=== PATIENT | male | born 1980 | race Caucasian/White ===

== ENCOUNTER 2021-01-23 09:52 | Emergency (ER) | payer OTHER ==
[~2021-01-23] VITALS: Ht 180.3 cm; Wt 95.2 kg
[2021-01-23 10:18] LABS: BASOPHILS ABSOLUTE AUTO 0.15 K/mm3 (0.00-0.23); BASOPHILS PERCENT AUTO 1 % (0-2); EOSINOPHILS ABSOLUTE AUTO 0.26 K/mm3 (0.00-0.68); EOSINOPHILS PERCENT AUTO 2 % (0-6); Hematocrit 45.4 % (37.0-53.0); Hemoglobin 14.2 g/dL (13.5-17.5); IMMATURE GRAN ABSOLUTE AUTO 0.12 K/mm3 (0.00-0.10); IMMATURE GRAN PERCENT AUTO 1 % (0-1); LYMPHOCYTES ABSOLUTE AUTO 3.68 K/mm3 (0.84-5.20); LYMPHOCYTES PERCENT AUTO 22 % (21-46); MONOCYTES ABSOLUTE AUTO 1.19 K/mm3 (0.16-1.47); MONOCYTES PERCENT AUTO 7 % (4-13); Mean Corpuscular HGB 28.5 pg (26.0-34.0); Mean Corpuscular HGB Conc 31.3 g/dL (31.5-36.5); Mean Corpuscular Volume 91 fL (80-100); Mean Platelet Volume 10.7 fL (9.1-12.4); NEUTROPHILS ABSOLUTE AUTO 11.24 K/mm3 (1.96-9.15); NEUTROPHILS PERCENT AUTO 68 % (41-73); Platelet Count 314 K/mm3 (150-400); RDW Coefficient Variation 13.2 % (11.7-14.2); RDW Standard Deviation 44.7 fL (35.1-46.3); Red Blood Cell Count 4.99 M/mm3 (4.30-5.90); White Blood Cell Count 16.64 K/mm3 (4.00-11.30)
[2021-01-23 10:32] LABS: Alanine Aminotransfer (ALT/SGP 25 U/L (12-78); Albumin, Blood 3.9 g/dL (3.4-5.0); Albumin/Globulin Ratio 0.8 (0.8-1.8); Alk Phos 108 U/L (50-136); Anion Gap 16 mmol/L (6-16); Aspartate Aminotrans (AST/SGOT 14 U/L (12-37); Bilirubin, Total 0.3 mg/dL (0.1-1.0); Blood Urea Nitrogen 13 mg/dL (8-24); Bun/Creatinine Ratio 12.9 (12.0-20.0); CO2, Blood 16 mmol/L (21-32); Calcium, Blood 8.9 mg/dL (8.5-10.1); Chloride, Blood 103 mmol/L (98-108); Creatinine, Blood 1.01 mg/dL (0.60-1.20); Globulin, Blood 4.6 g/dL (2.2-4.0); Glomerular Filtration Rate >60 (60-); Glucose, Blood 227 mg/dL (70-99); Potassium, Blood 4.2 mmol/L (3.5-5.5); Sodium, Blood 135 mmol/L (136-145); Total Protein, Blood 8.5 g/dL (6.4-8.2)
[2021-01-23] MEDS ORDERED: ACET325 PO (12:37)
[2021-01-23] MEDS ORDERED: Acerola C500 MG PO (12:37)
[2021-01-23] MEDS ORDERED: Seroquel Xr50 MG PO (12:38)
[2021-01-23] MEDS ORDERED: FERSU300 PO (12:38)
[2021-01-23] MEDS ORDERED: LEVE500 PO (13:55)
== END 2021-01-23 15:11 | disposition home or self-care (01) ==
LOC: ER 09:52
PROVIDERS: Emergency Medicine
DX: R56.9 Unspecified convulsions (principal); Z87.820 Personal history of traumatic brain injury; Z98.890 Other specified postprocedural states
CPT/HCPCS: 70450; 71045; 72125; 80053; 82947; 85025; 96374; 99285-25; J1953; J7030

== ENCOUNTER 2024-07-21 10:08 | Inpatient (IN) | payer OTHER, MEDICARE ==
[~2024-07-21] VITALS: Ht 190.5 cm; Wt 145.4 kg
[2024-07-21] VITALS (10 sets, daily range): BP systolic 97–140; BP diastolic 56–86
[~2024-07-21 10:08] MED LIST: ACET325 PO; Acerola C500 MG PO; FERSU300 PO; LEVE500 PO; Seroquel Xr50 MG PO
[2024-07-21 11:12] LABS: BASOPHILS PERCENT AUTO 1 % (0-2); EOSINOPHILS ABSOLUTE AUTO 0.15 K/mm3 (0.00-0.68); EOSINOPHILS PERCENT AUTO 1 % (0-6); Hematocrit 42.7 % (37.0-53.0); Hemoglobin 14.3 g/dL (13.5-17.5); IMMATURE GRAN ABSOLUTE AUTO 0.07 K/mm3 (0.00-0.10); IMMATURE GRAN PERCENT AUTO 1 % (0-1); LYMPHOCYTES ABSOLUTE AUTO 2.24 K/mm3 (0.84-5.20); LYMPHOCYTES PERCENT AUTO 20 % (21-46); MONOCYTES ABSOLUTE AUTO 0.73 K/mm3 (0.16-1.47); MONOCYTES PERCENT AUTO 6 % (4-13); Mean Corpuscular HGB Conc 33.5 g/dL (31.5-36.5); Mean Corpuscular Volume 87 fL (80-100); Mean Platelet Volume 10.6 fL (9.1-12.4); NEUTROPHILS ABSOLUTE AUTO 8.22 K/mm3 (1.96-9.15); NEUTROPHILS PERCENT AUTO 71 % (41-73); Platelet Count 243 K/mm3 (150-400); RDW Coefficient Variation 13.4 % (11.7-14.2); RDW Standard Deviation 42.5 fL (35.1-46.3); Red Blood Cell Count 4.93 M/mm3 (4.30-5.90); White Blood Cell Count 11.51 K/mm3 (4.00-11.30)
[2024-07-21 12:00] LABS: Albumin, Blood 3.5 g/dL (3.4-5.0); Albumin/Globulin Ratio 0.9 (0.8-1.8); Bilirubin, Total 0.3 mg/dL (0.1-1.0); Bun/Creatinine Ratio 10.1 (12.0-20.0); Calcium, Blood 9.6 mg/dL (8.5-10.1); Creatinine, Blood 0.79 mg/dL (0.60-1.20); Globulin, Blood 4.1 g/dL (2.2-4.0); Potassium, Blood 3.8 mmol/L (3.5-5.5); Total Protein, Blood 7.6 g/dL (6.4-8.2)
[2024-07-21] MEDS ORDERED: LORazepam 2 MG/ML 1ML Injection ONE ×2 (12:26→12:31)
[2024-07-21] MEDS ORDERED: propofoL 100 ML IV ONE ×2 (12:44→14:12)
[2024-07-21] MEDS ORDERED: levETIRAcetam 1,500 MG in NS 100 ML IV ONE (12:45)
[2024-07-21] MEDS ORDERED: propofoL 20 ML IV SCH (12:45)
[2024-07-21] MEDS ORDERED: NS 1,000 ML IV ONE (12:58)
[2024-07-21] MEDS ORDERED: Midazolam HCL 1 MG/ML 5MLVIAL ONE (12:58)
[2024-07-21] MEDS ORDERED: levETIRAcetam 1,000 MG in NS 100 ML IV ONE (13:20)
[2024-07-21] MEDS ORDERED: FentaNYL Citrate 50 MCG/ML 2 ML Injection IV ONE ×2 (13:20→13:40)
[2024-07-21] MEDS ORDERED: FentaNYL Citrate 50 MCG/ML 2 ML Injection ONE (13:37)
[2024-07-21] MEDS ORDERED: NS 1,000 ML IV SCH (13:40)
[2024-07-21] MEDS ORDERED: fentaNYL citrate 1,000 MCG in NS 80 ML IV SCH (13:40)
[2024-07-21 13:56] LABS: U Amphetamine Screen Not Detected; U Barbituate Screen Not Detected; U Benzodiazapine Screen Not Detected; U Buprenorphine Screen Not Detected; U Cannabinoids Screen DETECTED; U Cocaine Screen Not Detected; U Methadone Screen Not Detected; U Methamphetamine Screen Not Detected; U Opiates Screen Not Detected; U Oxycodone Screen Not Detected; U Phencyclidine Screen Not Detected
[2024-07-21] MEDS ORDERED: propofoL 100 ML IV SCH (14:15)
[2024-07-21] MEDS ORDERED: Midazolam HCL 50 MG in NS 40 ML IV SCH (18:30)
[2024-07-21] MEDS ORDERED: Lactated Ringer's 1,000 ML IV SCH (18:55)
[2024-07-21 19:03] LABS: Base Excess Venous -0.4 mmol/L; Bicarbonate Venous 24.2 mmol/L (24.0-30.0)
[2024-07-21 19:54] LABS: Source, Urine Foley catheter
[2024-07-21 20:16] LABS: Appearance, Urine Turbid (Clear); Bilirubin, Urine Neg (Neg); Blood, Urine 4+ (Neg); Color, Urine Yellow (P-Yellow); Glucose Qualitative, Urine Neg (Neg); Ketones, Urine Neg (Neg); Leukocyte Esterase, Urine Neg (Neg); Nitrite, Urine Neg (Neg); Protein, Urine 1+ (Neg); Urobilinogen, Urine NORM (Normal)
[2024-07-21 20:28] LABS: Amorphous Heavy (0-Heavy); Bacteria Mod /hpf; Squamous Epithelial Cells Rare /hpf (Few); White Blood Cells, Urine 0-2 /hpf (0-5)
--- NOTE | 2024-07-21 21:38 | NUR ---
ADMISSION 2036 RECEIVED PT FROM ED VIA STRETCHER , INTUBATED, 7.5 ETT AT 26 AT TEETH, ON VENTILATOR AC/VC FIO2 40% RATE 16 TV 480 PEEP 5, COLIN LUNG SOUNDS COARSE, COARSE/DIM TO COLIN LOWER LOBES, ORAL SECRETIONS THIN CLEAR, MODERATED AMOUNT SUCTIONED PRIOR TO TURNING, OG PATENT AND SECURED TO ETT WITH TAPE, PLACEMENT VERIFIED BY AUSC, CONNECTED TO LOW INTERMITTENT SUCTION WITH NOTED CLEAR YELLOW BILE RETURNED, MCQUEEN PATENT AND DRAINING COUDY,SEDIMENT YELLOW URINE TO GRAVITY, BLE +2 EDEMA NOTED, +RADIAL AND PEDAL PULSES, PIV TO RIGHT HAND REMOVED DURING TRANSFER FROM STRETCHER TO BED, PIV TO RIGHT HAND PATENT WITH VERSED INFUSING AT 5 MG/HR AND PIV TO LEFT AC PATENT WITH PROPOPOL INFUSING AT 40 MCG/KG/MIN, VERSED INCREASED TO 7 MG/HR DUE TO PT BECOMING RESTLESS, PULLING ON RESTRAINTS AND MOVING LLE UP AND DOWN AND SHAKING HEAD BACK AND FORTH, DOES NOT FOLLOW COMMANDS OR RESPOND TO VERBAL STIMULI, NEW PIV 20G PLACED TO RIGHT AC, LEFT AC PIV REMOVED DUE TO UNABLE TO FLUSH, SEIZURE PADS PLACED TO BED, COLIN WRIST RESTRAINTS ON, PROPOFOL INCREASED TO 45 MCG/KG/MIN TO MAINTAIN RASS -2/-3 PER EMAR, FEBRILE 99.4F, MAP >65, SR -ST 90-100s, SPO2 >90%
[2024-07-21] MEDS ORDERED: levETIRAcetam 1,500 MG in NS 100 ML IV SCH (23:00)
[2024-07-22] VITALS (79 sets, daily range): BP systolic 89–142; BP diastolic 35–88
[2024-07-22 04:45] LABS: Base Excess Venous 1.2 mmol/L; Bicarbonate Venous 25.3 mmol/L (24.0-30.0); PCO2 Venous 40.3 mmHg (38-42); pH Blood Venous 7.41 (7.34-7.37)
[2024-07-22 04:55] LABS: BASOPHILS ABSOLUTE AUTO 0.07 K/mm3 (0.00-0.23); BASOPHILS PERCENT AUTO 1 % (0-2); EOSINOPHILS ABSOLUTE AUTO 0.06 K/mm3 (0.00-0.68); EOSINOPHILS PERCENT AUTO 1 % (0-6); Hematocrit 37.7 % (37.0-53.0); Hemoglobin 12.7 g/dL (13.5-17.5); IMMATURE GRAN ABSOLUTE AUTO 0.06 K/mm3 (0.00-0.10); IMMATURE GRAN PERCENT AUTO 1 % (0-1); LYMPHOCYTES ABSOLUTE AUTO 2.07 K/mm3 (0.84-5.20); LYMPHOCYTES PERCENT AUTO 16 % (21-46); MONOCYTES ABSOLUTE AUTO 0.91 K/mm3 (0.16-1.47); MONOCYTES PERCENT AUTO 7 % (4-13); Mean Corpuscular HGB 29.4 pg (26.0-34.0); Mean Corpuscular HGB Conc 33.7 g/dL (31.5-36.5); Mean Corpuscular Volume 87 fL (80-100); Mean Platelet Volume 10.8 fL (9.1-12.4); NEUTROPHILS ABSOLUTE AUTO 9.63 K/mm3 (1.96-9.15); NEUTROPHILS PERCENT AUTO 75 % (41-73); Platelet Count 233 K/mm3 (150-400); RDW Coefficient Variation 13.7 % (11.7-14.2); RDW Standard Deviation 44.1 fL (35.1-46.3); Red Blood Cell Count 4.32 M/mm3 (4.30-5.90)
[2024-07-22 05:34] LABS: Albumin, Blood 3.1 g/dL (3.4-5.0); Albumin/Globulin Ratio 0.9 (0.8-1.8); Bilirubin, Total 0.3 mg/dL (0.1-1.0); Bun/Creatinine Ratio 8.8 (12.0-20.0); Calcium, Blood 8.7 mg/dL (8.5-10.1); Creatinine, Blood 0.91 mg/dL (0.60-1.20); Globulin, Blood 3.4 g/dL (2.2-4.0); Potassium, Blood 3.4 mmol/L (3.5-5.5); Total Protein, Blood 6.5 g/dL (6.4-8.2)
[2024-07-22] MEDS ORDERED: Potassium Chl 20MEQ/Water100ML 100 ML IV SCH (05:55)
--- NOTE | 2024-07-22 06:40 | NUR ---
SHIFT SUMMARY VSS, AFEBRILE AT THIS TIME, TMAX 99.4F, REMAINS INTUBATED AND SEDATED RASS -3, CPOT 0, SR 80-90s, MAP>65, ON VENT FIO2 40%, SPO2 >90%,VERSED AND PROPOFOL TITRATED PER EMAR, LR INFUSING AT 150 ML/HR, POTASSIUM 3.4 WITH AM LABS, AWARE WITH NEW ORDERS RECEIVED, COLIN WRIST RESTRAINTS ON
[2024-07-22] MEDS ORDERED: Enoxaparin 40 MG/0.4 ML SYR SC SCH (09:00)
[2024-07-22] MEDS ORDERED: Ampicillin Sod/Sulbactam Sod 3 GM in NS 100 ML IV SCH (10:30)
[2024-07-22] MEDS ORDERED: DOCU100 PO (10:38)
[2024-07-22] MEDS ORDERED: Nicorette4 MG BC (10:39)
[2024-07-22] MEDS ORDERED: ALMACONE SUSPE355 ML PO (10:39)
[2024-07-22] MEDS ORDERED: INVEGA TRI IM (10:40)
[2024-07-22] MEDS ORDERED: SENN187 PO (10:41)
[2024-07-22] MEDS ORDERED: Hydrogen Peroxide 1.5 % Solution MT SCH (12:00)
[2024-07-22] MEDS ORDERED: Pantoprazole Sodium 40 MG Injection IV SCH (12:00)
--- NOTE | 2024-07-22 13:49 | NUR ---
VERSED STOPPED AT 1345. RASS -4 +GAG REFLEX, COUGH BUT NO SWALLOW, CORNEAL REFLEX PRESENT. PROPOFOL RUNNING AT 30 AT THIS TIME. PLAN TO SLOWLY WEAN PER DR GONZALEZ. EEG COMPLETED THIS MORNING, SEDATION PAUSED FOR DIAGNOSTIC PROCEDURE PATIENT BECAME AWAKE/ALERT AND RESPONSIVE, +COMBATATIVE PULLING AT RESTRAINTS. PROPOFOL WAS INCREASED AND VERSED INCREASED PATIENT BECAME CALM AND SEDATED.
[2024-07-22] MEDS ORDERED: dexmedeTOMIDine 100 ML IV SCH (15:35)
--- NOTE | 2024-07-22 16:31 | NUR ---
SEDATION VACATION UNSUCCESSFUL, PATIENT TITRATED OFF OF PROPOFOL AND STOPPED PER MD FOR SEDATION VACATION. DR GONZALEZ INCREASED TIDAL VOLUME AND PLACED HIM ON SPONTANEOUS BREATHING TRIAL. PATIENT TOLERATED SPONTANEOUS VENT MODE WELL BUT UPON AWAKENING FROM SEDATION PATIENT BECAME COMBATATIVE, TUGGING AT LINES/TUBE. NOT REDIRECTABLE AND DID NOT FOLLOW DIRECTIONS. PT WAS RE-SEDATED AND UPDATED ORDERS RECIEVED FROM DR GONZALEZ.
[2024-07-22] MEDS ORDERED: Propofol 10mg/ml 20 ml Vial (Procedural) IV ONE (16:36)
[2024-07-22] MEDS ORDERED: LORazepam 2 MG/ML 1ML Injection IV ONE (16:36)
[2024-07-22] MEDS ORDERED: SuccINYLCHOLINE Chloride 200 MG/10 ML 10MLSYR IV ONE (16:36)
[2024-07-22] MEDS ORDERED: Midazolam HCl 1MG / ML 2ML Vial XX ONE (16:36)
--- NOTE | 2024-07-22 18:40 | NUR ---
SHIFT SUMMARY PATIENT INTUBATED AND SEDATED. RASS -3 ABLE TO BRIEFLY FOLLOW COMMANDS IE SQUEEZING WITH L HAND BUT NOT CURRENTLY OPENING HIS EYES. GAG REFLEX INTACT, +COUGH, NO SWALLOW, CORNEAL REFLEX INTACT. VSS, VENT 16/520/45/5. O2 SAT STABLE AT 98% ON THIS SETTING. SINUS RHYTHM HR 60S, SBP 90-100S MAP MAINTAINING GREATER THAN 65. THIN CLEAR SECREATIONS. LUNGS BIBASILAR CRACKLES IN BASES A BIT COARSE ON THE RIGHT LOWER WELL. ABDOMEN IS SOFT/NON TENDER WITH HYPOACTIVE BOWEL TONES. OG TUBE TO LIS, APPROX 500ML OUT THIS SHIFT BILIOUS UOP ADEQUATE. MCQUEEN CATH IN PLACE DRAINING TO GRAVITY BLE DEPENDENT EDEMA WORSE ON R THAN L +1 NON PITTING MOTHER GIVEN UPDATES TODAY SEDATION VACATION NOT SUCESSFUL SEE PRIOR NOTE.
[2024-07-22 19:14] LABS: Acinetobacter baumannii DNA Not Detected copy/mL (NOT DETECT); Adenovirus DNA Not Detected (NOT DETECT); Chlamydia pneumonia Not Detected (NOT DETECT); Enterobacter cloacae DNA Not Detected copy/mL (NOT DETECT); Escherichia coli DNA Not Detected copy/mL (NOT DETECT); Haemophilus influenzae DNA Not Detected copy/mL (NOT DETECT); Klebsiella aerogenes DNA Not Detected copy/mL (NOT DETECT); Klebsiella oxytoca DNA Not Detected copy/mL (NOT DETECT); Klebsiella pneumoniae DNA Not Detected copy/mL (NOT DETECT); Legionella pneumophila Not Detected (NOT DETECT); Moraxella catarrhalis DNA Not Detected copy/mL (NOT DETECT); Mycoplasma pneumoniae Not Detected (NOT DETECT); Proteus sp DNA Not Detected copy/mL (NOT DETECT); Pseudomonas aeruginosa DNA Not Detected copy/mL (NOT DETECT); Serratia marcescens DNA Not Detected copy/mL (NOT DETECT); Staphylococcus aureus DNA Not Detected copy/mL (NOT DETECT); Streptococcus agalactiae DNA Not Detected copy/mL (NOT DETECT); Streptococcus pneumoniae DNA Not Detected copy/mL (NOT DETECT); Streptococcus pyogenes DNA Not Detected copy/mL (NOT DETECT)
[2024-07-22 19:15] LABS: Human Coronavirus RNA Not Detected (NOT DETECT); Human Metapneumovirus RNA Not Detected (NOT DETECT); Influenza virus A RNA Not Detected (NOT DETECT); Influenza virus B RNA Not Detected (NOT DETECT); Parainfluenza virus RNA Not Detected (NOT DETECT); Respiratory syncytial Vir RNA Not Detected (NOT DETECT); Rhinovirus+Enterovirus RNA Not Detected (NOT DETECT)
[2024-07-22] MEDS ORDERED: Cetylpyridinium Chloride 1 EA MISC MT SCH (20:00)
[2024-07-23] VITALS (34 sets, daily range): BP systolic 113–161; BP diastolic 71–97
[2024-07-23 03:58] LABS: BASOPHILS ABSOLUTE AUTO 0.06 K/mm3 (0.00-0.23); BASOPHILS PERCENT AUTO 1 % (0-2); EOSINOPHILS ABSOLUTE AUTO 0.14 K/mm3 (0.00-0.68); EOSINOPHILS PERCENT AUTO 1 % (0-6); Hematocrit 37.5 % (37.0-53.0); Hemoglobin 12.5 g/dL (13.5-17.5); IMMATURE GRAN ABSOLUTE AUTO 0.03 K/mm3 (0.00-0.10); IMMATURE GRAN PERCENT AUTO 0 % (0-1); LYMPHOCYTES ABSOLUTE AUTO 2.62 K/mm3 (0.84-5.20); LYMPHOCYTES PERCENT AUTO 22 % (21-46); MONOCYTES ABSOLUTE AUTO 1.12 K/mm3 (0.16-1.47); MONOCYTES PERCENT AUTO 9 % (4-13); Mean Corpuscular HGB 29.4 pg (26.0-34.0); Mean Corpuscular HGB Conc 33.3 g/dL (31.5-36.5); Mean Corpuscular Volume 88 fL (80-100); NEUTROPHILS PERCENT AUTO 67 % (41-73); Platelet Count 217 K/mm3 (150-400); RDW Coefficient Variation 13.9 % (11.7-14.2); RDW Standard Deviation 45.1 fL (35.1-46.3); Red Blood Cell Count 4.25 M/mm3 (4.30-5.90); White Blood Cell Count 11.97 K/mm3 (4.00-11.30)
[2024-07-23 04:16] LABS: Albumin, Blood 2.8 g/dL (3.4-5.0); Albumin/Globulin Ratio 0.8 (0.8-1.8); Bilirubin, Total 0.4 mg/dL (0.1-1.0); Bun/Creatinine Ratio 6.5 (12.0-20.0); Calcium, Blood 8.3 mg/dL (8.5-10.1); Creatinine, Blood 0.92 mg/dL (0.60-1.20); Globulin, Blood 3.4 g/dL (2.2-4.0); Magnesium, Blood 2.1 mg/dL (1.6-2.4); Potassium, Blood 3.6 mmol/L (3.5-5.5); Total Protein, Blood 6.2 g/dL (6.4-8.2)
[2024-07-23] MEDS ORDERED: Potassium Chloride 40 MEQ in NS 250 ML IV SCH (06:05)
--- NOTE | 2024-07-23 06:16 | NUR ---
SHIFT SUMMARY PT REMAINS INTUBATED AND SEDATED, RASS -2/-3, CPOT 0, AC/VC MODE ON VENT 40%/520/5/16, SB-SR 47-60s, BP MAP >65, TMAX 100.1F, TOLERATING VENT WELL, SEDATED ON PROPOFOL AND PRECEDEX, PRECEDEX TITRATED DOWN TO OFF DUE TO BRADYCARDIA, PROPOFOL TITRATED PER EMAR FOR RASS -2/-3, MCQUEEN PATENT AND DRAINING TO GRAVITY, TURNED AND REPOSITONED EVERY 2 HOUR, COLIN WRIST RESTRAINTS IN PLACE, SEIZURE PAD IN PLACE TO ALL SIDE RAILS
[2024-07-23] MEDS ORDERED: Furosemide 10 MG / ML 2ML Vial IV STA (08:32)
[2024-07-23] MEDS ORDERED: Furosemide 10 MG / ML 2ML Vial IV ONE (08:35)
--- NOTE | 2024-07-23 17:05 | NUR ---
Pt extubated at 1415 with good effect. See RT charting for details.
[2024-07-23] MEDS ORDERED: NS 250 ML IV PRN (18:15)
--- NOTE | 2024-07-23 18:57 | NUR ---
Summary. Pt much improved this shift. Off sedation, extubated. On RA, alert and oriented x2, occasionally exhibits auditory hallucinations and some mild confusion. Pt was attempting to leave AMA this afternoon, after conversation with physician, patient's mother and other staff, patient decided to stay inpatient tonight. No acute events this shift, see chart for further details.
[2024-07-23] MEDS ORDERED: Enoxaparin 40 MG/0.4 ML SYR SC SCH (21:00)
[2024-07-24] VITALS (7 sets, daily range): BP systolic 133–155; BP diastolic 74–98
[2024-07-24 03:41] LABS: BASOPHILS ABSOLUTE AUTO 0.07 K/mm3 (0.00-0.23); BASOPHILS PERCENT AUTO 1 % (0-2); EOSINOPHILS ABSOLUTE AUTO 0.15 K/mm3 (0.00-0.68); EOSINOPHILS PERCENT AUTO 1 % (0-6); Hematocrit 36.5 % (37.0-53.0); Hemoglobin 12.5 g/dL (13.5-17.5); IMMATURE GRAN ABSOLUTE AUTO 0.04 K/mm3 (0.00-0.10); IMMATURE GRAN PERCENT AUTO 0 % (0-1); LYMPHOCYTES ABSOLUTE AUTO 2.49 K/mm3 (0.84-5.20); LYMPHOCYTES PERCENT AUTO 18 % (21-46); MONOCYTES ABSOLUTE AUTO 1.15 K/mm3 (0.16-1.47); MONOCYTES PERCENT AUTO 9 % (4-13); Mean Corpuscular HGB 29.5 pg (26.0-34.0); Mean Corpuscular HGB Conc 34.2 g/dL (31.5-36.5); Mean Corpuscular Volume 86 fL (80-100); Mean Platelet Volume 10.8 fL (9.1-12.4); NEUTROPHILS ABSOLUTE AUTO 9.69 K/mm3 (1.96-9.15); NEUTROPHILS PERCENT AUTO 71 % (41-73); Platelet Count 220 K/mm3 (150-400); RDW Coefficient Variation 13.3 % (11.7-14.2); RDW Standard Deviation 41.9 fL (35.1-46.3); Red Blood Cell Count 4.24 M/mm3 (4.30-5.90); White Blood Cell Count 13.59 K/mm3 (4.00-11.30)
[2024-07-24 04:02] LABS: Albumin, Blood 3.2 g/dL (3.4-5.0); Albumin/Globulin Ratio 0.8 (0.8-1.8); Bilirubin, Total 0.8 mg/dL (0.1-1.0); Bun/Creatinine Ratio 7.2 (12.0-20.0); Calcium, Blood 8.7 mg/dL (8.5-10.1); Creatinine, Blood 0.84 mg/dL (0.60-1.20); Globulin, Blood 3.8 g/dL (2.2-4.0); Magnesium, Blood 1.6 mg/dL (1.6-2.4)
[2024-07-24] MEDS ORDERED: Potassium Chloride 40 MEQ in NS 250 ML IV ONE (04:30)
--- NOTE | 2024-07-24 05:17 | NUR ---
SHIFT SUMMARY PT A/OX3, RESPONDS TO QUESTIONS APPROPRIATLY AND ABLE TO MAKE NEEDS KNOWN. ON ROOM AIR, SATS > 94%, PT DENIES SOB. ON NURSING HOME ADMINISTRATOR, HR 80'S, BP STABLE. HAS HAD SOME INCONTINENT EPISODES, HOWEVER, HE HAS BEGAN ASKING FOR ASSISTANCE W/ THE URINAL AND HAS BEEN SUCCESSFUL WITH THAT. NO BM THIS SHIFT. K+ REPLACEMENT INITIATED R/T RESULT OF 3.0 FROM AM LABS. NO ACUTE EVENTS THIS SHIFT.
[2024-07-24] MEDS ORDERED: Magnesium Sulf 2 GM/Water 50ML 50 ML IV STA (07:07)
[2024-07-24] MEDS ORDERED: LevETIRAcetam 500 MG Tab PO SCH (09:00)
[2024-07-24] MEDS ORDERED: LEVE500 PO (14:54)
--- NOTE | 2024-07-24 16:24 | NUR ---
Discharge. Pt discharged at approximately 1600, VS stable. Medications faxed to [facility] in [facility]. Pt and mother verbalized understanding of all discharge instructions including importance of maintaining proper medication regiment to avoid further episodes of seizures. All personal belongings sent home with patient upon discharge. Pt wheeled to vehicle by patient healthcare business analyst from ICU. All peripheral IVs removed prior to patient leaving.
--- NOTE | 2024-07-26 14:59 | NUR ---
DISCHARGE CONCERN BY MOTHER VICTOR MANUEL CHERRY CONCERNING PATIENT RONEY RUSH IS CONCERNED THAT RONEY IS ON TO HIGH A KEPPRA DOSE OF 1500MG PO BID BECAUSE THE PHARMACIST AT [facility] WAS VERY CONCERNED THAT THE DOSE WAS TOO HIGH. IT WAS CONFIRMED BY ECHO IN OUR PHARMACY THAT RONEY WAS ON THIS DOSE WHILE IN THE HOSPITAL AND HE NEEDS TO CONTINUE TO BE ON IT TILL SEEN BY A PRIMARY DOCTOR OR NEUROLOGIST, WHICH IS WRITTEN OUT ON HIS DISCHARGE FORMS TO DO. VICTOR MANUEL STATED SHE DID CALL UP AT [facility] WHERE RONEY WAS REFERRED TO IN [place]. SHE STATED SHE CALLED TODAY 07/26/24 TO GET A DOCTOR HOWEVER THEY WANT [facility] TO CALL THEM TO GET RONEY A DOCTOR, RONEY IS NOT SUPPOSE TO CALL FOR THEIR OWN CONSULT.
== END 2024-07-24 16:24 | disposition home or self-care (01) | DRG 100 ==
LOC: ER 10:08 → ICUE 18:53 → ERHOLD 18:53 → ICUE 20:20
PROVIDERS: Emergency Medicine; Nurse Practitioner Acute Care; Student in an Organized Health Care Education/Training Program; ADMIT Internal Medicine
PROC: 5A1945Z Respiratory Ventilation, 24-96 Consecutive Hours (ICD-10-PCS; principal; 2024-07-21)
PROC: 0BH17EZ Insertion of Endotracheal Airway into Trachea, Via Natural or Artificial Opening (ICD-10-PCS; 2024-07-21)
PROC: 0T9B70Z Drainage of Bladder with Drainage Device, Via Natural or Artificial Opening (ICD-10-PCS; 2024-07-21)
DX: G40.401 Other generalized epilepsy and epileptic syndromes, not intractable, with status epilepticus (principal); J96.01 Acute respiratory failure with hypoxia; Z87.820 Personal history of traumatic brain injury; Z91.148 Patient's other noncompliance with medication regimen for other reason; E66.9 Obesity, unspecified; E87.6 Hypokalemia; F20.9 Schizophrenia, unspecified; Z98.890 Other specified postprocedural states; Z68.37 Body mass index [BMI] 37.0-37.9, adult
CPT/HCPCS: 0528U; 31500; 36415; 51702; 70450; 71045; 80053; 81001; 82803; 82947; 83735; 84443; 85025; 87070; 87086; 87205; 94002; 94003; 95819; 96365-59; 99285-25; A9270; C1751; J0295; J0330; J1650; J1940; J1953; J2060; J2250; J2470; J2704; J3010; J3475; J3480; J7030; J7050; J7120